=== PATIENT | male | born 1995 | race Hispanic/Latino ===

== ENCOUNTER 2021-03-11 12:34 | Emergency (ER) | payer SELFPAY ==
[2021-03-11 12:52] VITALS: BP 149/81; PULSE 102; RESP 20; TEMP 36.5; O2SAT 98
--- NOTE | 2021-03-11 13:53 | ED.GENADULT ---
HPI - General Adult General Chief complaint: Upper Respiratory Infection Stated complaint: congestion Time Seen by Provider: 03/11/21 13:53 Source: patient and RN notes reviewed Mode of arrival: ambulatory Limitations: no limitations History of Present Illness HPI narrative: 25-year-old male presents with complaints of upper respiratory infection, sneezing, some facial congestion, facial pressure, and nausea for the past 5 days. NyQuil and DayQuil with some relief. Ill exposure. No facial swelling. Cough, productive cough (yellow-green phlegm), no chest congestion. Nasal congestion and rhinorrhea. No high fevers, drooling, neck or throat swelling. ?No voice change. No vomiting or abdominal pain. Tolerating liquids well. Denies dyspnea, difficulty swallowing, dental pain, foreign body sensation, and rash. ?No chest pain. ?The patient reports he has not been diagnosed with COVID-19.? The patient reports he is not waiting for the results of a COVID-19 lab test. The patient reports he does not have chills, weakness, or fatigue. The patient reports he does not have any sore throat, loss of taste or smell, and diarrhea. Denies recent traveling.? Denies concerns for COVID-19 or exposures.? At this time, the patient is not suspected of having COVID-19. ? Some parts of this dictation were generated by voice recognition software and may contain typographical and/or grammatical inaccuracies. Related Data Allergies Allergy/AdvReac Type Severity Reaction Status Date / Time No Known Allergies Allergy Mild Unverified 08/03/05 07:24 DUST, pOLLEN, cATS/dANDER, Allergy Mild Congested Uncoded 03/11/21 13:18 gRASS Review of Systems Review of Systems: Narrative: CONSTITUTIONAL: Denies fever, chills, sweats. EYES: Denies visual changes, redness, discharge. ENT: Complains of rhinorrhea, congestion, facial congestion and pressure, sore throat. Denies otalgia. CARDIOVASCULAR: Denies chest pain, palpitations, edema. RESPIRATORY: Denies dyspnea, wheezing. Complains of cough. GASTROINTESTINAL: Denies abdominal pain, vomiting, diarrhea. Complains of nausea. GENITOURINARY: Denies dysuria, hematuria, abnormal discharge SKIN: Denies rash or itching. MUSCULOSKELETAL: Denies acute back pain, joint pain, or myalgia. NEUROLOGIC: Denies numbness or focal weakness. PSYCHIATRIC: Denies anxiety or depression. All other systems reviewed & are unremarkable except as noted in HPI and below. [facility] Past Medical History Medical History (Updated 03/12/21 @ 00:00 by Lady Hou) Asthma Hypertension Surgical History Surgical History (Updated 03/11/21 @ 14:16 by NOEMI Ratliff) Hx of sinus surgery Family History Family History (Updated 03/11/21 @ 14:17 by NOEMI Ratliff) Father Unknown family medical history Mother Hypertension Social History Social History (Updated 03/11/21 @ 14:18 by NOEMI Ratliff) Smoking status: Current every day smoker Tobacco type: e-cigarettes/vaping Second hand tobacco smoke exposure: No (quit using cigarettes 1-1/2 months ago now vapes) Alcohol intake: current Substance use: current Substance use type: marijuana Living arrangements: with family Occupation/Education: occupation Gender identity (if verbalized by the patient): Male Comments At time of signature, agree with the nurse past medical, surgical, social, and family history. There is no relevant family history pertinent to the presenting complaint. Exam Narrative: Exam Narrative: GENERAL: This is a well-nourished, well-developed patient, in no apparent distress. Talks in full sentences and ambulates with steady gait without dyspnea. HEAD: Normocephalic, atraumatic. EYES: PERRL. Sclera clear/white. Vision is grossly intact. EARS: External ears normal, auditory canals clear and without drainage, TMs normal without perforation. Hearing grossly intact. NOSE: External nose normal with no obvious nasal discha
== END 2021-03-11 14:24 | disposition home or self-care (01) ==
PROVIDERS: Emergency Provider Nurse Practitioner Family
DX: J01.90 Acute sinusitis, unspecified (principal); J40 Bronchitis, not specified as acute or chronic; F17.200 Nicotine dependence, unspecified, uncomplicated; I10 Essential (primary) hypertension; J45.909 Unspecified asthma, uncomplicated
CPT/HCPCS: 99213; G0463

== ENCOUNTER 2021-04-15 12:29 | Emergency (ER) | payer SELFPAY ==
[2021-04-15 12:38] VITALS: BP 152/99; PULSE 85; RESP 16; TEMP 36.6; O2SAT 99
--- NOTE | 2021-04-15 13:25 | ED.WOUNDLAC ---
HPI - Wound/Laceration General Chief Complaint: Wound/Laceration Stated Complaint: Tick Bite Time Seen by Provider: 04/15/21 13:25 Source: patient Mode of arrival: ambulatory Limitations: no limitations History of Present Illness HPI narrative: Benjie Go is a 25 yo male is a PMH of HTN (but refuses to take meds), due to tick bite that occurred 2 weeks ago. Has a raised red area on the inside of his left thigh near the inguinal area that is mildly tender but not particularly injury indurated. Patient also has hot high blood pressure these are by for years he has tried lisinopril and Norvasc but states that he has bad side effects to lisinopril and the Norvasc made him feel but he is agreeable to trying a different blood pressure medication. He has no PCP; he vapes and states that he decreased his nicotine intake by going from cigarettes to vape pen Related Data Home Medications Medication Instructions Recorded Confirmed cetirizine mg 04/15/21 Allergies Allergy/AdvReac Type Severity Reaction Status Date / Time No Known Allergies Allergy Mild Unverified 08/03/05 07:24 DUST, pOLLEN, cATS/dANDER, Allergy Mild Congested Uncoded 03/11/21 13:18 gRASS Review of Systems Review of Systems: Narrative: CONSTITUTIONAL: Denies fever, chills, sweats. EYES: Denies visual changes, redness, discharge. ENT: Denies rhinorrhea, congestion, sore throat, otalgia. CARDIOVASCULAR: Denies chest pain, palpitations, edema. RESPIRATORY: Denies dyspnea, wheezing, cough GASTROINTESTINAL: Denies abdominal pain, nausea, vomiting, diarrhea. GENITOURINARY: Denies dysuria, hematuria, abnormal discharge SKIN: Denies rash or itching. Small red tick bite from 2 weeks ago in the inside of left thigh NEUROLOGIC: Denies numbness, or focal weakness. PSYCHIATRIC: Denies anxiety or depression. [facility] Past Medical History Medical History Asthma Hypertension Surgical History Surgical History Hx of sinus surgery Family History Family History Father Unknown family medical history Mother Hypertension Other Diabetes mellitus Social History Social History Smoking status: Current every day smoker Tobacco type: e-cigarettes/vaping Second hand tobacco smoke exposure: No (quit using cigarettes 1-1/2 months ago now vapes) Alcohol intake: current Substance use: current Substance use type: marijuana Gender identity (if verbalized by the patient): Male Comments At time of signature, I agree with nursing past medical, surgical, social and family history. There is no relevant family history pertinent to the presenting complaint. Exam Narrative: Exam Narrative: GENERAL: This is a well-nourished, well-developed patient, in mild distress. HEAD: normocephalic, atraumatic. EYES: Sclera clear/white. Vision is grossly intact. EARS: External ears normal,. Hearing grossly intact. NOSE: External nose normal without nasal discharge, nares without redness, no rhinorrhea. THROAT: Mucous membranes moist, NECK: Neck supple, non-tender CARDIOVASCULAR: Regular rate and rhythm without murmurs, gallops, or rubs. RESPIRATORY: Clear to auscultation. Breath sounds equal bilaterally. No wheezes, rales, or rhonchi. GASTROINTESTINAL: Abdomen soft, SKIN: warm, intact with small red lesion on the left inner thigh that is about 1 cm across with no induration mildly tender NEURO: awake, alert, and oriented to person, place and time. There were no obvious focal neurologic abnormalities. Steady gait EXTREMITIES: Normal range of motion. BACK: Nontender without deformity Course Course Emergency Course: [facility] with a lesion on the inside of the left thigh and elevated blood pressure that he has refused to take medica
== END 2021-04-15 13:50 | disposition home or self-care (01) ==
PROVIDERS: Emergency Provider Nurse Practitioner
DX: S70.362A Insect bite (nonvenomous), left thigh, initial encounter (principal); W57.XXXA Bitten or stung by nonvenomous insect and other nonvenomous arthropods, initial encounter; I10 Essential (primary) hypertension; Z91.19 Patient's noncompliance with other medical treatment and regimen; F17.200 Nicotine dependence, unspecified, uncomplicated; J45.909 Unspecified asthma, uncomplicated
CPT/HCPCS: 99213; G0463

== ENCOUNTER 2021-06-12 10:16 | Emergency (ER) | payer SELFPAY ==
[2021-06-12 10:22] VITALS: BP 148/98; PULSE 88; RESP 16; TEMP 36; O2SAT 99
--- NOTE | 2021-06-12 10:25 | ED.SKABFB ---
HPI - Skin/Abscess/Foreign Bdy General Chief complaint: Skin/Abscess/Foreign Body Stated complaint: poison isaiah Time Seen by Provider: 06/12/21 10:25 Source: patient and RN notes reviewed Mode of arrival: ambulatory Limitations: no limitations History of Present Illness HPI narrative: 25-year-old male presents to the [facility] with complaints of poison isaiah. Patient states he has been trying to take care of it at home. Had some leftover prednisone his been using tap cortisone to the multiple areas throughout his body. Most concerned about the left antecubital area there is a 5 cm red, raised, warm area. Does have full range of motion of the elbow and the wrist. Sensation intact distal to that area. Capillary refill under 2 seconds. Related Data Allergies Allergy/AdvReac Type Severity Reaction Status Date / Time DUST, pOLLEN, cATS/dANDER, Allergy Mild Congested Uncoded 03/11/21 13:18 gRASS Review of Systems Review of Systems: All systems reviewed & are unremarkable except as noted in HPI and below Constitutional: Constitutional: Reports no additional constitutional complaints, Denies chills and Denies fever(s) Eyes: Eyes: Reports no additional eye complaints ENT: Reports system reviewed and no additional complaints, except as documented Cardiovascular: Cardiovascular: Reports no additional cardiovascular complaints Respiratory: Respiratory: Reports no additional respiratory complaints Musculoskeletal: Musculoskeletal: Reports no additional musculoskeletal complaints Integumentary/Breasts: Skin/Breast: Reports as per HPI, Reports erythema and Reports rash Neurologic: Reports system reviewed and no additional complaints, except as documented Psychiatric: Psychiatric: Reports no additional psychiatric complaints Allergic/Immunologic: Allergic/Immunologic: Reports no additional allergic/immunologic complaints, Denies lip swelling, Denies throat swelling, Denies tongue swelling and Denies wheezing COUNTS INCLUDE 234 BEDS AT THE [facility] Past Medical History Medical History Asthma Hypertension Surgical History Surgical History Hx of sinus surgery Family History Family History Father Unknown family medical history Mother Hypertension Other Diabetes mellitus Social History Social History Smoking status: Current every day smoker Tobacco type: e-cigarettes/vaping Second hand tobacco smoke exposure: No (quit using cigarettes 1-1/2 months ago now vapes) Alcohol intake: current Substance use: current Substance use type: marijuana Gender identity (if verbalized by the patient): Male Comments At the time of my signature, I reviewed and agree with the nursing past medical, surgical, social, and family history. There is no relevant family history pertinent to the patient complaint. Exam Const: General: healthy appearing, no acute distress and alert Nutritional Appearance: well nourished Orientation/consciousness: patient oriented x3 Limitations: no limitations HENMT: Head: normal to inspection Eyes: Conjunctivae: conjunctivae normal Pupils: Equal, round and reactive pupils present Neck: Neck: normal visual inspection, no lymphadenopathy and no meningeal signs Chest: Chest palpation & inspection: normal inspection of the chest Resp: Effort & Inspection: normal respiratory effort Auscultation: clear to auscultation bilaterally Cardio: Rate: regular rate Rhythm: regular rhythm Back/Spine/Pelvis: Back: no CVA tenderness Skin: General skin exam: normal color Other: 5 cm in diameter red raised area left antecubital. No fluctuant center. Multiple red areas with vesicular bumps on abdomen forearms and legs. Neuro: General: patient oriented x3, moves all extremities, no meningeal signs and no focal motor deficits Speech:
== END 2021-06-12 10:36 | disposition home or self-care (01) ==
PROVIDERS: Emergency Provider Nurse Practitioner
DX: L23.7 Allergic contact dermatitis due to plants, except food (principal); L03.113 Cellulitis of right upper limb; I10 Essential (primary) hypertension; J45.909 Unspecified asthma, uncomplicated; F17.290 Nicotine dependence, other tobacco product, uncomplicated
CPT/HCPCS: 99213; G0463

== ENCOUNTER 2021-08-31 09:03 | Emergency (ER) | payer SELFPAY ==
[2021-08-31 09:14] VITALS: BP 155/109; PULSE 71; RESP 16; TEMP 35.9; O2SAT 98
--- NOTE | 2021-08-31 10:20 | ED.GENADULT ---
HPI - General Adult General Chief complaint: Headache Stated complaint: davis/vomiting/chills/body aches Source: patient Mode of arrival: ambulatory Limitations: no limitations History of Present Illness HPI narrative: Patient is a 25-year-old male who presents to the [facility] via POV for evaluation of a headache, nausea, vomiting, diarrhea, and chills that began today. No relief with ibuprofen. He reports taking 500 mg tablets of ibuprofen within 2 to 3 hours apart this am without relief. Nothing worsens symptoms. He reports 2 episodes of vomiting undigested food and one episode of brown watery diarrhea. Denies known exposure to sick contacts. Patient reports history of hypertension. He states his PCP continued antihypertensives 2 to 3 months ago and is using a more holistic approach to control BP. Patient does not know baseline BPs and denies monitoring BP at home. He states last lab work was drawn approximately 2 months ago. At that time, labs showed high cholesterol . He is not vaccinated against Covid and is requesting Covid 19 testing today. Related Data Allergies Allergy/AdvReac Type Severity Reaction Status Date / Time DUST, pOLLEN, cATS/dANDER, Allergy Mild Congested Uncoded 08/31/21 09:38 gRASS Review of Systems Review of Systems: Denies past abdominal medical history. Pertinent negatives pain, fever, chills, sweats, malaise, poor p.o. intake, change in appetite, recent weight loss, lymphadenopathy, headache, sore throat, dizziness, LOC, urinary sxs, back/flank pain, extremity paresthesias, blood in stool, nausea, constipation, belching, bloating, dry mouth, heartburn, jaundice, vomiting blood, and testicular pain. PMFSH Past Medical History Medical History Asthma Hypertension Surgical History Surgical History Hx of sinus surgery Family History Family History Father Unknown family medical history Mother Hypertension Other Diabetes mellitus Social History Social History Smoking status: Current every day smoker Tobacco type: e-cigarettes/vaping Second hand tobacco smoke exposure: No (quit using cigarettes 1-1/2 months ago now vapes) Alcohol intake: current Substance use: current Substance use type: marijuana Gender identity (if verbalized by the patient): Male Comments I have reviewed and agree with the patient's past medical, surgical, social, and family hx as documented by the RN. There is no relevant family history pertinent to the presenting complaint. Exam Narrative: GENERAL: Well-appearing, well-nourished, and in no acute distress. HEAD: Normocephalic, atraumatic. No sinus tenderness or facial swelling appreciated. EYES: PERRLA and EOMI. No evidence of erythema, swelling, or drainage. ENT: Mucous membranes moist and pink. Uvula is midline without erythema and swelling. No evidence of petechial rash, cobblestoning, lesions, ulcers, erythema, swelling, exudates, peritonsillar abscess, tenting, or drooling. Breath odor and voice normal. NECK: Supple. No Lymphadenopathy or nuchal rigidity appreciated. CHEST: Bilateral lung moreno are clear to auscultation. No respiratory distress. No evidence of cough or pleuritic cp upon examination. HEART: Regular rate and rhythm. No murmur, gallop, or rub heard. ABDOMEN: Mild generalized tenderness appreciated upon palpation. Soft, nondistended, normal active bowel sounds in all quadrants. No guarding. No rebound tenderness. No pulsatile or palpable abdominal mass(es). No CVAT EXTREMITIES: Normal range of motion. No edema. SKIN: Warm, dry, no rash. Excellent skin turgor. NEURO: No focal deficits. Alert and oriented x3. SPECIAL OBSERVATIONS: Laughing, joking. Course Vital Signs Vital signs: Vital Sig
[2021-09-01 17:37] LABS: SARS-CoV-2 RNA PCR Negative
== END 2021-08-31 10:53 | disposition home or self-care (01) ==
PROVIDERS: Emergency Provider Nurse Practitioner Family; PCP Physician Assistant
DX: R11.2 Nausea with vomiting, unspecified (principal); R19.7 Diarrhea, unspecified; R03.0 Elevated blood-pressure reading, without diagnosis of hypertension; Z20.822 Contact with and (suspected) exposure to COVID-19; I10 Essential (primary) hypertension; F17.290 Nicotine dependence, other tobacco product, uncomplicated
CPT/HCPCS: 99213; C9803; G0463; U0003; U0005

== ENCOUNTER 2025-02-15 10:19 | Emergency (ER) | payer MEDICAID, SELFPAY ==
--- NOTE | 2025-02-15 10:23 | ED_ITS ---
HPI - Eye Problem General Chief complaint: Eye Problems Stated complaint: EYE REDNESS Time Seen by Provider: 02/15/25 10:23 Source: patient Mode of arrival: ambulatory Limitations: no limitations History of Present Illness HPI Narrative: Patient is a 29 year old male who presents to the clinic with complaints of right eye redness since yesterday. Patient states that he was having mold removed from his house and noticed it occurring after. He has not been taking anything over the counter. Denies any vision changes. Related Data Home Medications Medication Instructions Recorded Confirmed Last Taken Type albuterol 90 mcg-budesonide 80 inh inhalation 02/15/25 Unknown History mcg/actuation HFA aerosol inhaler (Airsupra) cetirizine 10 mg tablet mg 02/15/25 Unknown History fenofibrate 160 mg tablet mg 02/15/25 Unknown History fluticasone propionate 50 intranasal 02/15/25 Unknown History mcg/actuation nasal spray,suspension lisinopril 5 mg tablet mg 02/15/25 Unknown History propranolol 80 mg capsule,24 mg PO 02/15/25 Unknown History hr,extended release Allergies Allergy/AdvReac Type Severity Reaction Status Date / Time DUST, pOLLEN, cATS/dANDER, Allergy Mild Congested Uncoded 02/15/25 10:21 [facility] Review of Systems Review of Systems: CONSTITUTIONAL: Denies body aches, fever, chills EYES: Endorses redness to Right eye; No FB sensation, photophobia. Denies v isual changes ENT: Denies rhinorrhea, congestion, sore throat, or otalgia. CARDIOVASCULAR: Denies chest pain, palpitations RESPIRATORY: Denies cough or dyspnea. GASTROINTESTINAL: Denies abdominal pain, nausea, vomiting, or diarrhea. SKIN: Denies rash, itching, or wounds. MUSCULOSKELETAL: Denies back pain, joint pain, or myalgia. NEUROLOGIC: Denies headache, numbness, tingling, or weakness. All systems reviewed & are unremarkable except as noted in HPI and below PMFSH Past Medical History Medical History Asthma Hypertension Surgical History Surgical History Hx of sinus surgery Family History Family History Father Unknown family medical history Mother Hypertension Other Diabetes mellitus Social History Social History Smoking status: Current every day smoker Tobacco type: e-cigarettes/vaping Second hand tobacco smoke exposure: No (quit using cigarettes 1-1/2 months ago now vapes) Alcohol intake: current Substance use: current Substance use type: marijuana Living arrangements: with family Occupation/Education: occupation Gender identity (if verbalized by the patient): Male Comments At time of signature, I have reviewed and agree with nursing past medical, surgical, social and family history unless otherwise noted. Please see nursing chart for further information. There is no relevant family history pertinent to the presenting complaint. Exam Narrative: GENERAL: Well-appearing HEAD: Normocephalic, atraumatic. EYES: Right conjunctival injection, No eye lid swelling or redness. No drainage noted. EOMI. Lid eversion with no FB. ENT: Mucous membranes pink and moist. No rhinorrhea. TMs normal bilaterally. Throat normal. Uvula midline. CHEST: Clear to auscultation. HEART: Regular rate and rhythm. ABDOMEN: Soft, nontender, nondistended SKIN: Warm, dry, no rash. Normal skin turgor. NEURO: No focal deficits. Alert and oriented x3 PSYCH: Normal affect. Course Course Level of Care: Express Care Visit Vital Signs Vital signs: Reviewed MDM - Eye Problem MDM Narrative Medical decision making narrative: Discussed physical exam findings. Eyedrops given for bacterial conjunctivits. Advised supportive measures and signs/symptoms to go to the ER. Pt is appropriate for outpt treatment and follow up. Differential Diagnosis Differential diagnosis: Likely conjunctivitis Critical Care Time Critical Care Time Critical Care Time: No Discharge Plan Discharge Clinical Impression: Bacterial conjunctivitis Patient Disposition: Home Condition: Stable Instructions: Antibiotic Form, Conjunctivitis (ED) Additional Instructions: Avoid touching or rubbing your eye. Use over the counter lubricating eye drops as needed for irritation Use a warm or cool washcloth on your eye for comfort Use eyedrops as directed - you are contagious for 24 hours after starting the antibiotic Practice good handwashing and hygiene to prevent spread of infection Do not wear the contact lenses. Use a new pair after the infection is resolved. Use new makeup, lashes etc. You may take Tylenol or ibuprofen for pain Patient Language: Hungarian Prescriptions: New polymyxin B sulf-trimethoprim 10,000 unit- 1 mg/mL drops 1 drp RIGHT EYE QID 5 Days Qty: 10 0RF Rx Instructions: while awake; do not exceed 6 doses in 24 hours No Action metformin 500 mg tablet cetirizine 10 mg tablet propranolol 80 mg capsule,extended release 24 hr PO lisinopril 5 mg tablet fluticasone propionate 50 mcg/actuation spray,suspension INTRANASAL fenofibrate 160 mg tablet Airsupra 90-80 mcg/actuation HFA aerosol inhaler INHALATION Follow-up/Referrals: Bob,MD Zac [Primary Care Provider] - Time of Disposition: 10:32
[2025-02-15 10:33] VITALS: BP 156/74; PULSE 88; RESP 16; TEMP 36.9; O2SAT 98
== END 2025-02-15 10:52 | disposition home or self-care (01) ==
PROVIDERS: PCP Family Medicine
DX: H10.9 Unspecified conjunctivitis (principal); F17.290 Nicotine dependence, other tobacco product, uncomplicated; I10 Essential (primary) hypertension; J45.909 Unspecified asthma, uncomplicated
CPT/HCPCS: 99213; G0463

== ENCOUNTER 2025-05-11 10:29 | Emergency (ER) | payer BC, SELFPAY ==
--- NOTE | 2025-05-11 10:31 | ED_ITS ---
HPI - Skin/Abscess/Foreign Bdy General Chief complaint: Skin/Abscess/Foreign Body Stated complaint: poison deepali Time Seen by Provider: 05/11/25 10:30 Source: patient Mode of arrival: ambulatory Limitations: no limitations History of Present Illness HPI narrative: Patient is a 29-year-old male that presents with poison deepali rash to bilateral forearms for 1 week. Patient has tried [id number] medication and cream with no relief. Denies any shortness of breath. Related Data Home Medications ?Medication ?Instructions ?Recorded ?Confirmed ?Last Taken ?Type albuterol 90 mcg-budesonide 80 inh inhalation 02/15/25 Unknown History mcg/actuation HFA aerosol inhaler (Airsupra) cetirizine 10 mg tablet mg 02/15/25 Unknown History fenofibrate 160 mg tablet mg 02/15/25 Unknown History lisinopril 5 mg tablet mg 02/15/25 Unknown History Allergies Allergy/AdvReac Type Severity Reaction Status Date / Time DUST, pOLLEN, cATS/dANDER, Allergy Mild Congested Uncoded 02/15/25 10:21 Elaine Review of Systems Review of Systems: All systems reviewed & are unremarkable except as noted in HPI and below Constitutional: Constitutional: Denies body ache(s), Denies chills, Denies fatigue, Denies fever(s), Denies headache(s), Denies malaise and Denies weakness Eyes: Eyes: Denies blurry vision, Denies irritation and Denies loss of vision ENT: Denies otalgia, Denies headache(s), Denies nasal discharge, Denies sinus pain and Denies sore throat Cardiovascular: Cardiovascular: Denies chest pain, Denies irregular heart rhythm and Denies dyspnea Respiratory: Respiratory: Denies dyspnea Gastrointestinal: Gastrointestinal: Denies abdominal pain, Denies melena, Denies hematochezia, Denies diarrhea, Denies nausea and Denies vomiting Musculoskeletal: Musculoskeletal: Denies back pain, Denies myalgias and Denies arthralgias Integumentary/Breasts: Skin/Breast: Reports pruritus and Reports rash Neurologic: Denies headache(s), Denies loss of vision and Denies weakness Psychiatric: Psychiatric: Reports no additional psychiatric complaints Endocrine: Endocrine: Denies fatigue PMFSH Past Medical History Medical History Asthma Hypertension Surgical History Surgical History Hx of sinus surgery Family History Family History Father Unknown family medical history Mother Hypertension Other Diabetes mellitus Social History Social History Smoking status: Current every day smoker Tobacco type: e-cigarettes/vaping Second hand tobacco smoke exposure: No (quit using cigarettes 1-1/2 months ago now vapes) Alcohol intake: current Substance use: current Substance use type: marijuana Living arrangements: with family Occupation/Education: occupation Gender identity (if verbalized by the patient): Male Comments At time of signature, agree with nursing past medical, surgical, social and family history. There is no relevant family history pertinent to the presenting complaint. Exam Const: General: cooperative, healthy appearing, comfortable, no acute distress and well nourished Nutritional Appearance: well nourished Orientation/consciousness: patient oriented x3 Limitations: no limitations HENMT: Head: normal to inspection, normocephalic and atraumatic Ears: hearing grossly normal bilaterally and external ears normal Face/Nose/Sinus: Normal external nose present, normal facial exam and face symmetric Face and sinus: normal facial exam and face symmetric Mouth: Yes lip normal Eyes: General: appearance normal, both eyes and all related structures Alignment and Position: alignment normal and position normal Periorbital: periorbital findings normal Eyelids: eyelids normal Pupils: Equal, round and reactive pupils present EOM: EOMs intact bilaterally Neck: Neck: normal visual inspection, full ROM and supple Chest: Chest palpation & inspection: normal inspection of the chest Resp: Effort & Inspection: normal respiratory effort and able to speak in complete sentences Auscultation: clear to auscultation bilaterally Cardio: Rate: regular rate Rhythm: regular rhythm Heart sounds: S1 normal heart sound present and S2 normal heart sound present GI: Inspection: normal to inspection Skin: General skin exam: normal color Rashes: rashes noted vesicles bilateral forearm arrangement grouped, borders sharp and irregular, color with an erythematous base and surface erythematous, waxy and wet; nontender Neuro: General: patient oriented x3 and moves all extremities Cranial nerves: Yes Equal, round and reactive pupils present Speech: normal speech Gait exam (Neuro): Normal gait present Extrem: General: normal to inspection, full ROM and no edema Psych: Appearance: grossly normal and well kempt Mental Status: mental status grossly normal Speech and movement: Normal speech and movement present Affect: normal affect Attitude: cooperative Thought process: Normal thought process present Course Course Emergency Course: Patient is aware of diagnosis, understands and agrees to treatment plan. Anticipatory guidance given. Patient agrees to follow-up as directed and is aware of reasons to seek care at the emergency department. Portions of this record may have been created with voice recognition software Level of Care: Express Care Visit Vital Signs Vital signs: Vital Signs Temperature 36.4 C L 05/11/25 10:42 Pulse Rate 103 H 05/11/25 10:42 Respiratory Rate 18 05/11/25 10:42 Blood Pressure 118/63 05/11/25 10:42 Pulse Oximetry 98 05/11/25 10:42 Oxygen Delivery Room Air 05/11/25 10:42 Temperature 36.4 C L 05/11/25 10:42 Pulse Rate 103 H 05/11/25 10:42 Respiratory Rate 18 05/11/25 10:42 Blood Pressure 118/63 05/11/25 10:42 Pulse Oximetry 98 05/11/25 10:42 Oxygen Delivery Room Air 05/11/25 10:42 Reviewed MDM - Skin/Abscess/Foreign Bdy MDM Narrative Medical decision making narrative: Pt well hydrated appearing, in no respiratory distress, hemodynamically stable. Recommend supportive care. The patient is stable at time of discharge the clinical impression was discussed and the patient was given the opportunity to ask questions, which were addressed as completely as possible given the information available at present. Anticipatory guidance and return to care precautions were discussed and the importance of primary care follow-up was stressed and encouraged. The patient voiced understanding of the plan, indications to return, and the need for follow-up. Exam findings show no acute concerns or changes Patient is appropriate for outpatient treatment and follow-up. Differential Diagnosis Differential diagnosis: Likely urticaria, allergic reaction to drug, cellulitis, insect bites and contact dermatitis (Poison deepali) Medical Records Attestation: I reviewed the patient's medical records. Discharge Plan Discharge Clinical Impression: Poison deepali dermatitis Patient Disposition: Home Condition: Stable Instructions: Poison Deepali (ED) Additional Instructions: Take steroids in the morning with food Prevention is always better than treatment. Learn to identify poison deepali, oak, and sumac and avoid it. Wear long sleeves, long pants, shoes, and socks. If you touched the plant, try to keep your hands away from your eyes, mouth, and face. Wash the skin thoroughly with soap and cool water as soon as possible. Scrub under the fingernails with a brush to prevent spreading of the resin to other parts of the body by touching or scratching. Remember to wash any clothing with soap and hot water as the resin can persist for many months and cause further dermatitis. You should NOT use antihistamine creams or lotions, anesthetic creams containing benzocaine, or antibiotic creams containing neomycin or bacitracin to the skin. These creams or ointments could make the rash worse. For some people, adding oatmeal to a bath, applying cool wet compresses, and applying calamine lotion may help to relieve itching. Once the blisters begin weeping fluid, astringents containing aluminum acetate (Burow's solution) and Domeboro may help to relieve the rash. IF symptoms get worse to follow up with your primary care provider or seek ER visit if you developing difficulty breathing, weakness, dizziness. Patient Language: Mozambican Prescriptions: New prednisone 10 mg tablet See Rx Instructions .ROUTE .COMPLEX Qty: 35 0RF Rx Instructions: 40 mg daily for 5 days, 20 mg daily for 5 days, 10 mg daily for 5 days No Action cetirizine 10 mg tablet lisinopril 5 mg tablet fenofibrate 160 mg tablet Airsupra 90-80 mcg/actuation HFA aerosol inhaler INHALATION Follow-up/Referrals: Bob,MD Zac [Primary Care Provider] - 3 Days Time of Disposition: 10:47
--- OUTSIDE RECORDS SUMMARY | 2025-05-11 10:39 | XMS_ITS | Encounter Summary ---
Author Organization [facility] Address [address] [place] [address] Care Team Providers Care Commercial Real Estate Underwriter Name Role Phone Farhan Morrison MD Primary Care Provider Unavail able Reason for Visit * Reason Onset Date Comments Results 03/15/2022 Encounter Details Date Type Department Care Team (Late st Contact Info) Description 03/15/2022 Telephone [facility] [address] [place] [address] Farhan Morrison MD RETIRED Results Social History Tobacco Use Types Packs/Day Years Used Date Smoking Tobacco: Never Smokeless Tobacco: Never Sex and Gender Information Value Date Recorded Sex Assigned at Not on file Legal 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 Answered all questions. Pt has appointment with on April 07, 2022. * Telephone Encounter - [place] - 03/15/2022 1:02 PM CDT Current Provider name: JEAN CARLOS Reason for call: Patient Benjie Go called into the scheduling line requesting to speak to his Endo provider to review recent lab results that were sent 02/08/2022. Patient Call Back number: [phone] documented in this encounter Plan of Treatment Not on file documented as of this encounter Visit Diagnoses Not on filedocumented in this encounter Additional Health Concerns Infection Onset Date Last Indicated Resolved Time COVID-19 Under Investigation 04/17/2023 04/17/2023 04/17/2023 7:20 AM CDT documented as of this encounter Care Teams Commercial Real Estate Underwriter Relationship Specialty Start Date End Date Farhan Morrison MD RETIRED PCP - General 01/25/10 documented as of this encounter
--- OUTSIDE RECORDS SUMMARY | 2025-05-11 10:39 | XMS_ITS | Clinical Summary ---
Author Organization [facility] Address [address] [place] [address] Care Team Providers Care Associate Director Of Sales Name Role Phone Vishnu David MD Unavailable No, Physician Primary Care Provider [phone] Allergies No known active allergies Medications lisinopril (PRINIVIL,ZESTRIL ) 5 mg tablet Take 1 tablet (5 mg total) by mouth daily. 30 tablet 8 Active aspirin 81 mg tabletIndications :Prevention of mi/CVA Take 1 tablet (81 mg total) by mouth daily. 30 tablet 8 Active pseudoephedrine (SUDAFED) 30 mg tabletIndications :Nasal Congestion Take 2 tablets (60 mg total) by mouth every 6 (six) hours as needed for congestion. 30 tablet 8 Active fluticasone (FLONASE) 50 mcg/actuation nasal spray Administer 2 sprays into each nostril 2 (two) times a day. 16 g 8 Active albuterol HFA (PROAIR HFA) 90 mcg/actuation inhalerIndication s:Acute non-recurrent pansinusitis Inhale 2 puffs every 4 (four) hours as needed for wheezing or shortness of breath. 8.5 g 9 Active propranolol LA (INDERAL LA) 80 mg 24 hr capsule Take 1 capsule (80 mg total) by mouth daily 30 capsule 4 Active albuterol HFA (PROVENTIL HFA,VENTOLIN HFA,PROAIR HFA) 90 mcg/actuation inhalerIndication s:Viral URI with cough Inhale 2 puffs every 6 (six) hours as needed for shortness of breath 18 g 4 Active Active Problems Problem Noted Date Diagnosed Date Acute non-recurrent pansinusitis 11/13/2018 Assessment & Plan (11/13/2018 10:52 AM ANALYTICS DIRECTOR): Augmentin BID with food. Continue supportive care. Patient advised to eat a cup of yogurt or take probiotic daily while on antibiotic. To separate yogurt or probiotic from antibiotic dosage by two hours. Patient was advised to return for re- evaluation if symptoms do not improve or if they worsen. Mild intermittent asthma with exacerbation 11/13 Assessment & Plan (11/13/2018 10:53 AM ANALYTICS DIRECTOR): Prednisone burst. Albuterol inhaler every 4-6 hours prn. RTC if symptoms persist/worsen. Hypertensive encephalopathy 01/29/2018 Class 2 obesity in adult 01/29/2018 Exposure to sexually transmitted disease (STD) 0 05/29/2014 Overview (01/05/2017): Exposure to STD Nonintractable headache Hypertension Surgical History Surgery Date Site/Laterality Comments NASAL SEPTUM SURGERY N/A Medical History Medical History Date Comments Hypertension Social History Tobacco Use Types Packs/Day Years Used Date Smoking Tobacco: Former Smokeless Tobacco: Never Alcohol Use Standard Drinks/Week Comments No 0 (1 standard drink = 0.6 oz pur e alcohol) Personal Safety Answer Date Recorded Have you ever been in or are you currently in a harmful physical or emotional relationship or is someone making you feel afraid or unsafe? Denies 10/01/2023 Sex and Gender Information Value Date Recorded Sex Assigned at Not on file Legal Sex Male 10:52 PM ANALYTICS DIRECTOR Gender Identity Not on file Sexual Orientation Not on file Obstetrics History Last Filed Vital Signs Vital Sign Reading Time Taken Comments Blood Pressure 132/86 06/18/2024 10:27 AM CDT Pulse 67 06/18/2024 10:27 AM CDT Temperature 36.8 C (98.2 F) 06/18/2024 10:27 AM CDT Respiratory Rate 18 06/18/2024 10:27 AM CDT Oxygen Saturation 97% 06/18/2024 10:27 AM CDT Inhaled Oxygen Concentration - - Weight 127 kg (280 lb) 06/18/2024 10:27 AM CDT Height 177.8 cm (5' 10) 06/18/2024 10:27 AM CDT Body Mass Index 40.18 06/18/2024 10:27 AM CDT Plan of Treatment Health Maintenance Due Date Last Done Comments Depression Screening 1993 Hepatitis C Screening 1993 Varicella Vaccines (2 of 2 - 2-dose childhood series) 11/13/2000 08/21/2000 Regular Well Visit/Exam 18-64 2011 Pneumococcal vaccine <65 (1 of 2 - PCV) 2012 HPV Vaccines (2 - Male 3-dos e series) 06/15/2015 05/18/2015 DTaP/Tdap/Td Vaccine (7 - Td or Tdap) 05/10/2021 05/10/2011, 09/08/1998, 05/19/1997, Additional history exists Influenza Vaccine (#1) 2025 11/27/2008 Hepatitis B Screening Completed 09/08/1998 , 02/23/1994, 1993 Advance Directives For more information, please contact: [phone] * Full Code (Latest Code Status on File) Date Activated Date Inactivated Comments 01/28/2018 9:15 PM 01/30/2018 3:55 PM Care Teams Associate Director Of Sales Relationship Specialty Start Date End Date No, Physician PCP - General 06/08/18 Vishnu David MD Consulting Physician Neurology 01/30/18
--- OUTSIDE RECORDS SUMMARY | 2025-05-11 10:39 | XMS_ITS | Clinical Summary ---
Author Organization [facility] Address [address] [place] [address] Care Team Providers Care Lead Custodian Name Role Phone Unavailable Primary Care Provider Unavailabl e Allergies No known active allergies Medications propranoloL (INDERAL) 10 mg tablet Take 10 mg by mouth 3 times daily. Active albuterol sulfate HFA 90 mcg/actuation aerosol inhalerIndicatio ns:Wheezing on left side of chest on exhalation Take 2 Puffs by inhalation every 6 hours as needed for Wheezing or Shortness of Breath. 8.5 Gram 3 Active pseudoephedrine (SUDAFED) 30 mg tabletIndication s:Allergic rhinitis, unspecified seasonality, unspecified trigger Take 2 Tablets (60 mg) by mouth every 6 hours as needed for Congestion. 30 Tablet 3 Active cyclobenzaprine (FLEXERIL) 10 mg tablet Take 1 Tablet (10 mg) by mouth 3 times daily as needed for Spasm. 21 Tablet 10/25/2023 3:55 PM ONLINE MERCHANDISER 4 Active ibuprofen (MOTRIN) 800 mg tablet Take 1 Tablet (800 mg) by mouth 3 times daily as needed for pain and inflammation. 50 Tablet 11/02/2023 3:24 PM ONLINE MERCHANDISER 4 Active methocarbamoL (ROBAXIN) 750 mg tablet Take 1 Tablet (750 mg) by mouth daily at bedtime as needed. 21 Tablet 11/02/2023 3:24 PM ONLINE MERCHANDISER 4 Active meloxicam (MOBIC) 15 mg tablet Take 1 Tablet (15 mg) by mouth daily. 30 Tablet 12/07/2023 3:06 PM ONLINE MERCHANDISER Active Active Problems No known active problems Social History Tobacco Use Types Packs/Day Years Used Date Smoking Tobacco: Never Smokeless Tobacco: Never Sex and Gender Information Value Date Recorded Sex Assigned at Not on file Legal Sex Male 6:00 AM ONLINE MERCHANDISER Gender Identity Not on file Sexual Orientation Not on file Last Filed Vital Signs Vital Sign Reading Time Taken Comments Blood Pressure 141/75 10/25/2023 3:52 PM ONLINE MERCHANDISER Pulse 72 10/25/2023 3:52 PM ONLINE MERCHANDISER Temperature 36.6 C (97.8 F) 10/25/2023 1:05 PM ONLINE MERCHANDISER Respiratory Rate 17 10/25/2023 3:52 PM ONLINE MERCHANDISER Oxygen Saturation 95% 10/25/2023 3:52 PM ONLINE MERCHANDISER Inhaled Oxygen Concentration - - Weight 117.9 kg (260 lb) 10/25/2023 1:05 PM ONLINE MERCHANDISER Height 180.3 cm (5' 11) 10/25/2023 1:05 PM ONLINE MERCHANDISER Body Mass Index 36.26 10/25/2023 1:05 PM ONLINE MERCHANDISER Plan of Treatment Health Maintenance Due Date Last Done Comments HPV VACCINES (1 - Male 3-dose series) 2008 DTAP/TDAP/TD VACCINES (1 - Tdap) 2012 HEPATITIS B VACCINES (1 of 3 - 19+ 3-dose series) 10/01 INFLUENZA VACCINE (#1) 2025 Insurance RX INFOCROSSING Medicaid RX [employer] (INTERNAL) [facility] [employer] [facility] (INTERNAL) [facility] [employer] [facility] [place]
--- OUTSIDE RECORDS SUMMARY | 2025-05-11 10:39 | XMS_ITS | Clinical Summary ---
Author Organization [facility] Address [address] [place] [address] Care Team Providers Care Meat Trimmer Name Role Phone Farhan Morrison MD Primary Care Provider Unavail able Source Comments [facility] [employer],non-owned Affiliates and Associated Physician Practices is amultiple site organization consisting of ambulatory clinics and hospital sitesin [place], [place], [place] and [place]. This disclosure is being madepursuant to the Care Everywhere program and may not contain all information available regarding this patient. Last updated 18.[facility] [employer] Allergies No known active allergies Medications * Be aware that medications may not be up to date on this document. Alwaysverify current medications with the patient. ALBUTEROL IN Inhale by mouth as needed Active albuterol HFA (PROVENTIL; VENTOLIN; PROAIR) 108 (90 Base) MCG/ACT inhaler Take 2 (two) puffs by mouth every 4 hours 03/11/2021 Active hydrOXYzine HCl (ATARAX) 25 MG tablet Take 25 mg by mouth 3 times daily as needed 01/11/2022 Active propranolol CR 24hr (INDERAL LA) 80 MG capsule Take 1 (one) capsule by mouth once daily 01/11/2022 Active sertraline (ZOLOFT) 50 MG tablet Take 50 mg by mouth once daily 01/11/2022 Active Aspirin-Acetami nophen-Caffeine (EXCEDRIN MIGRAINE PO) Take by mouth as needed Active Active Problems Problem Noted Date Diagnosed Date Confusion 04/17/2023 Leukocytosis, unspecified type 04/17/2023 Fever, unspecified fever cause 04/17/2023 Intractable acute post-traumatic headache 2022 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 2-4 times a month 04/24/2023 Q2: How many drinks containi ng alcohol do you have on a typical day when you are drinking? 1 or 2 04/24/2023 Q3: How often do you have si x or more drinks on one occasion? Less than monthly 04/24/2023 Overall Financial Resource Strain (CARDIA) Ans[place] r Date Recorded How hard is it for you to pa y for the very basics like food, housing, medical care, and heating? Not hard at all 04/18/2023 [facility] - Occupational Stress Questionnaire Answer Date Recorded Do you feel stress - tense, restless, nervous, or anxious, or unable to sleep at night because your mind is troubled all the time - these days? Only a little 04/18/2023 Hunger Vital Sign Answer Date Recorded Within the past 12 months, y ou worried that your food would run out before you got the money to buy more. Never true 04/18/20 23 Within the past 12 months, t he food you bought just didn't last and you didn't have money to get more. Never true 04/18/2023 PRAPARE - Transportation Answer Date Re corded In the past 12 months, has l ack of transportation kept you from medical appointments or from getting medications? No 03/31 In the past 12 months, has l ack of transportation kept you from meetings, work, or from getting things needed for daily living? No 04/18/2023 Housing Stability Vital Sign Answer [place] e Recorded In the last 12 months, was t here a time when you were not able to pay the mortgage or rent on time? No 04/18/2023 In the last 12 months, how many places have you lived? 1 04/18/2023 In the last 12 months, was t here a time when you did not have a steady place to sleep or slept in a fci (including now)? 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 Gender Identity Not on file Sexual Orientation Not on file Last Filed Vital Signs Vital Sign Reading Time Taken Comments Blood Pressure 151/90 04/26/2023 7:42 PM CDT Pulse 76 04/26/2023 7:42 PM CDT Temperature 36.8 C (98.2 F) 04/26/2023 7:42 PM CDT Respiratory Rate 22 04/25/2023 4:08 AM CDT Oxygen Saturation 99% 04/26/2023 7:42 PM CDT Inhaled Oxygen Concentration - - Weight 120.7 kg (266 lb) 04/18/2023 12:53 AM CDT Height 177.8 cm (5' 10) 04/18/2023 12:53 AM CDT Body Mass Index 38.17 04/18/2023 12:53 AM CDT Plan of Treatment Health Maintenance Due Date Last Done Comments DTAP/TDAP/TD VACCINES (1 - Tdap) 2012 HEPATITIS B VACCINE (1 of 3 - 19+ 3-dose series) 2012 HPV VACCINE (1 - 3-dose SCDM series) 2020 COVID-19 VACCINE ( - 2023-2 5 season) 2024 DEPRESSION SCREENING 10/01/2024 INFLUENZA VACCINE (#1) 2025 11/27/2008 ZOSTER VACCINE (1 of 2) 2043 HIV SCREENING Completed 04/16/2023 HEPATITIS C SCREENING Completed 04/20/2023 HIB VACCINE Aged Out No longer eligi ble based on patient's age to complete this topic MENINGOCOCCAL (Group B) VACC INE SHARED DECISION-MAKING Aged Out No longer eligibl e based on patient's age to complete this topic MENINGOCOCCAL GROUPS A/C/Y/W VACCINE Aged Out No longer eligible b ased on patient's age to complete this topic PNEUMOCOCCAL VACCINE Aged Out No long er eligible based on patient's age to complete this topic Procedures Procedure Name Priority Date/Time Associated Diagnosis Comments HEPATITIS C AB SCREEN RFLX NAAT QUANT Routine 04/20/2023 1:46 AM CDT HIV-1 HIV-2 ANTIBODY + HIV P24 AG PANEL STAT 04/16/2023 11:45 PM CDT from Last 3 Months or Most Recently Relevant to Health Maintenance Results * HEPATITIS C AB SCREEN RFLX NAAT QUANT (04/20/2023 1:46 AM CDT) Hepatitis C Antibody Non-react gaurav Non-reac tive 04/20/2023 3:02 AM CDT [facility] Comment:Hepatitis C Antibody screen indicates no serologic evidence of past or current infection with Hepatitis C Virus. Patients with unexplained liver disease who are immunocompromised or suspected of having acute Hepatitis C infection may benefit from Nucleic Acid Test (LACI) for Hepatitis C Viral RNA to confirm Hepatitis C status. Blood BLOOD SPECIMEN / Unknown Lab Venipuncture / Unknown 04/20/2023 1:46 AM CDT 04/20/2023 2:22 AM CDT Richard Johnson MD LAB - CHEMISTRY ORDERABLES Fi nal Result [address] [address], [place] [phone] * HIV-1 HIV-2 ANTIBODY + HIV P24 AG PANEL (04/16/2023 11:45 PM CDT) HIV Antigen/Antibod y 1 & 2 Non-reacti ve Non-react gaurav 04/17/2023 2:06 AM CDT [facility] Comment:No Laboratory eviden ce of HIV infection. Blood BLOOD SPECIMEN / Unknown Venipuncture / Unknown 04/16/2023 11:45 PM CDT 04/17/2023 12:16 AM CDT Agustina Perera MD LAB - CHEMISTRY ORDERABLES Final Result Performing Organization Address City/[facility]/ZIP Co de Phone Number [address] [address], [place] [phone] from Last 3 Months or Most Recently Relevant to Health Maintenance Advance Directives * Full Code (Latest Code Status on File) Date Activated Date Inactivated Comments 04/17/2023 2:57 AM 04/26/2023 9:53 PM Care Teams Meat Trimmer Relationship Specialty Start Date End Date Farhan Morrison MD RETIRED PCP - General 01/25/10
[2025-05-11 10:42] VITALS: BP 118/63; PULSE 103; RESP 18; TEMP 36.4; O2SAT 98
== END 2025-05-11 10:51 | disposition home or self-care (01) ==
PROVIDERS: Emergency Provider Nurse Practitioner Family; PCP Family Medicine
DX: L23.7 Allergic contact dermatitis due to plants, except food (principal); F17.290 Nicotine dependence, other tobacco product, uncomplicated; I10 Essential (primary) hypertension; J45.909 Unspecified asthma, uncomplicated
CPT/HCPCS: 99213; G0463